=== PATIENT | female | born 1965 | race Caucasian/White ===

== ENCOUNTER 2024-04-23 11:24 | Emergency (ER) | payer OTHER, SELFPAY ==
[2024-04-23 11:27] VITALS: BP 144/96
[2024-04-23 12:16] VITALS: BP 144/89; BMI 22.6
--- NOTE | 2024-04-23 12:29 | ED.GENMED ---
History of Present Illness
General
Chief Complaint: Cardiac Symptoms
Time Seen by Provider: 04/23/24 12:01
History of Present Illness
History of Present Illness:
58-year-old female with history of hypertension presents to the emergency department for evaluation of heart palpitations and intermittent chest pain beginning last night. No obvious provoking or palliating factors. Reports feeling several
episodes of 'skipped beats' throughout the duration of the symptoms. Denies shortness of breath or pleuritic chest pain. Denies any leg swelling or calf pain. Has family history of coronary disease but no personal history. Non-smoker
Past History
Past History
ED Past Medical History: Asthma, Fibromyalgia, HTN, Hypothyroidism and Other (Lyme disease)
ED Past Surgical History: Appendectomy and Cholecystectomy
Social History
Tobacco: Non-smoker
Alcohol: None
Employment: Employed
Review of Systems
Review of Systems
Allergies reviewed?: Yes
All Other Systems: ROS reviewed and negative except as documented in HPI and ROS
Phy Exam
Physical Exam
Physical Exam:
GEN: Well appearing, NAD, WDWN
HEENT: Oral mucosa moist, no scleral icterus
Cardiac: Regular rate and rhythm, no murmurs or rubs
Lung: No respiratory distress, no tachypnea, lungs clear to auscultation bilaterally
MSK: No gross deformity or injuries
Skin: Good color, no pallor or jaundice, no rashes
Neuro: AO x3, moves all extremities freely
Psych: Calm, cooperative
Course
Orders/Labs/Results
Orders:
Orders
04/23/24 11:25
ECG [Electrocardiogram (*1)] Urgent
Reason for Study: Chest Pain
EKG- Treatment ONCE
04/23/24 12:29
Complete Blood Count/With Diff Urgent
Comprehensive Metabolic Panel Urgent
DDimer [D-Dimer] Urgent
TSH Reflex To Free T4 Urgent
Troponin I Urgent
Abnormal Lab Results
04/23/24
12:29
MCH 32.6 H pg
(27.0-31.0)
Glucose 111 H mg/dl
(70-99)
AST 38 H U/L
(14-36)
ALT 46 H U/L
(0-35)
04/23/24 12:29
04/23/24 12:29
Vital Signs
Initial and Last Documented VS:
Initial Vital Signs
Pulse Resp BP Pulse Ox
116 16 144/96 99
04/23/24 11:27 04/23/24 11:27 04/23/24 11:27 04/23/24 11:27
Last Documented Vital Signs
Pulse Resp BP Pulse Ox
82 18 117/67 98
04/23/24 13:15 04/23/24 13:15 04/23/24 13:00 04/23/24 13:15
MDM/Problems Addressed
MDM/Problems Addressed:
Patient's workup is reassuring, D-dimer negative rules out pulmonary embolism. Although there is no evidence of acute coronary syndrome at this time, she does have family risk coupled with hypotension thus will refer to cardiology for outpatient
follow-up
Comment
Comment:
EKG independently interpreted by me shows a normal sinus rhythm at a rate of 95, some patient motion artifact in the lateral leads limits interpretation but no gross changes concerning for ischemia
*Critical Care Note
Total Time (30-74mins, 75-104mins- exclusive of procedures): Not Applicable
ED Attending Note
-
Portions of this chart may have been created with voice recognition software.� Occasional wrong word or��sound alike� substitutions may have occurred due to the inherent limitations of voice recognition software.
Discharge Plan
Departure
Patient Disposition: Home (Routine Discharge)
Date of Disposition: 04/23/24
Time of Disposition: 13:08
Patient with high blood pressure during this ER visit?: No
Discharge Problem:
Chest pain
Instructions: Chest Pain DCA Follow Up
Prescriptions:
No Action
sucralfate 1 GRAM tablet
1 g PO BIDPRN PRN (Reason: GI upset, acid reflux)
morphine 30 MG tablet extended release
30 mg PO DAILY
levothyroxine 50 MCG tablet
50 mcg PO DAILY
albuterol sulfate 1 PUFF HFA aerosol inhaler
1 puff inhalation R Q4HPRN PRN (Reason: sob)
pregabalin 50 MG capsule
50 mg PO DAILY
cholecalciferol (vitamin D3) 1,000 UNITS tablet
1,000 units PO DAILY
alpha lipoic acid 200 MG capsule
200 mg PO DAILY
multivitamin with folic acid [Tab-A-Michelle] 1 TABLET tablet
1 tab PO DAILY
codeine sulfate 15 MG tablet
120 mg PO BIDPRN PRN (Reason: breakthrough pain)
ibuprofen [Advil] 200 MG tablet
400 mg PO TIDPRN PRN (Reason: mildpain)
pregabalin 50 MG capsule
50 mg PO HSPRN PRN (Reason: severe pain)
Patient Comments:
at night if needed
Curcumin
1 cap PO DAILY
famotidine 20 MG tablet
20 mg PO DAILY
Cbd Ointment Otc
PRN (Reason: muscle pain)
Referrals:
Briana Mitchell DO [Family Provider] -
Interventions
Interventions:
*Risk Screen - Suicide Last Done: 04/23/24 12:16
*General Assessment Last Done: 04/23/24 12:16
*Neglect/Abuse Screening Last Done: 04/23/24 12:16
ED- Fall Risk Assessment Last Done: 04/23/24 12:16
*ED COVID-19 Vaccine History Last Done: 04/23/24 12:16
*Nursing Disposition Last Done: 04/23/24 13:41
ED- Pulmonary Assessment Last Done: 04/23/24 12:16
ED- Cardiac Assessment Last Done: 04/23/24 12:16
Discharge Date and Time
Discharge Date/Time: 04/23/24 13:42
Print Language: TOGOLESE
[2024-04-23 12:41] LABS: % Basophils 0.5 % (0-2); % Eosinophils 0.4 % (0-6); % Immature Granulocytes 0.4 % (0-0.5); % Lymphocytes 39.9 % (20.5-51.1); % Monocytes 6.9 % (1.7-9.3); % Neutrophils 51.9 % (42.2-75.2); Absolute Lymphocytes 2.3 10^3/uL (1.2-3.4); Absolute Monocytes 0.4 10^3/uL (0.1-0.6); Hemoglobin 14.3 g/dL (12.0-16.0); Mean Corpuscular Hgb 32.6 pg (27.0-31.0); Mean Corpuscular Volume 95.7 fL (81.0-99.0); Mean Platelet Volume 10.2 fL (7.4-10.4); Nucleated Red Blood Cells % 0 %; Platelet Count 257 10^3/uL (130-400); Red Blood Cell Count 4.39 10^6/uL (4.20-5.40); Red Cell Dist. Width 14.3 % (11.5-14.5); White Blood Cell Count 5.7 10^3/uL (4.8-10.8)
[2024-04-23 12:52] LABS: D-Dimer 0.48 ug/mlFEU (0.00-0.50)
[2024-04-23 12:55] LABS: ALT (SGPT) 46 U/L (0-35); AST (SGOT) 38 U/L (14-36); Albumin 4.9 g/dl (3.5-5.0); Alkaline Phosphatase 81 U/L (38-126); Blood Urea Nitrogen 13 mg/dl (7-17); Calcium 9.9 mg/dl (8.4-10.2); Carbon Dioxide 29 mmol/L (22-30); Chloride 100 mmol/L (98-107); Estimated Creatinine Clearance 77 ml/min; Glucose 111 mg/dl (70-99); Potassium 4.6 mmol/L (3.5-5.1); Sodium 139 mmol/L (135-145); Total Bilirubin 0.7 mg/dl (0.2-1.3); Total Protein 7.6 g/dl (6.3-8.2); eGFR > 60.00
[2024-04-23 13:00] VITALS: BP 117/67
[2024-04-23 13:06] LABS: Troponin I < 0.012 ng/ml
== END 2024-04-23 13:42 | disposition home or self-care (01) ==
LOC: EMR 11:24
PROVIDERS: Physician Assistant; EMERGENCY PHYSICIAN Emergency Medicine; FAMILY PHYSICIAN Family Medicine
DX: R07.89 Other chest pain (principal); I10 Essential (primary) hypertension
CPT/HCPCS: 99284; 80053; 84443; 84484; 85025; 85379; 93005

== ENCOUNTER 2024-05-28 16:14 | Emergency (ER) | payer OTHER, SELFPAY ==
[2024-05-28 16:17] VITALS: BP 132/91
[2024-05-28 16:55] VITALS: BMI 23.5
--- NOTE | 2024-05-28 17:24 | ED.GENMED ---
History of Present Illness
General
Chief Complaint: Abdominal Pain
Source: patient
Exam Limitations: none
Time Seen by Provider: 05/28/24 17:16
Nursing documentation reviewed up to this point in time: agreed with
History of Present Illness
History of Present Illness:
Patient presents to ED secondary to worsening pain, as well as discoloration of her existing umbilical hernia over the past 2 days. Patient states that she had seen general surgeon in the past, and surgery was recommended 2 years ago. Denies fever
or chills. Denies trauma. Patient does report intermittent episodes of vomiting since onset of symptoms. Patient notices swelling when she is standing up, but improves when laying down. Denies change in bowel habits. Denies recent change in
medications or diet.
Past History
Past History
ED Past Medical History: Asthma, Fibromyalgia, HTN, Hypothyroidism and Other (Lyme disease)
ED Past Surgical History: Appendectomy and Cholecystectomy
Social History
Tobacco: Non-smoker
Alcohol: None
Employment: Employed
Review of Systems
Review of Systems
Allergies reviewed?: Yes
All Other Systems: ROS reviewed and negative except as documented in HPI and ROS
Constitutional: Reports no symptoms
ABD/GI: Reports abdominal pain, vomiting and other (Umbilical hernia)
: Reports no symptoms
Musculoskeletal: Reports no symptoms
Skin: Reports no symptoms
Neurological: Reports no symptoms
Phy Exam
Physical Exam
Physical Exam:
Physical Exam
General: no apparent distress, not acutely ill. afebrile.
Head: nc/at. eomi
Neck: supple. normal range of motion.
Abdomen: normal bowel sounds. umbilical hernia noted, easily reducible. no distention.
Neuro: alert and oriented. no focal neurological deficits
Skin: no rash
Psychiatric: well kept. interactive and cooperative
Extremities: no edema. no calf tenderness.
Course
Vital Signs
Initial and Last Documented VS:
Initial Vital Signs
Temp Pulse Resp BP Pulse Ox
98.1 F 115 20 132/91 100
05/28/24 16:17 05/28/24 16:17 05/28/24 16:17 05/28/24 16:17 05/28/24 16:17
Last Documented Vital Signs
Temp Pulse Resp BP Pulse Ox
98.1 F 115 20 132/91 100
05/28/24 16:17 05/28/24 16:17 05/28/24 16:17 05/28/24 16:17 05/28/24 16:17
MDM/Problems Addressed
MDM/Problems Addressed:
History exam consistent with existing umbilical hernia, easily reducible. Patient does not have any exam findings concerning for incarcerated hernia. Patient will be referred to surgery for an outpatient consultation. Patient advised to return to
ED worsening symptoms, i.e. nonreducible hernia/persistent discoloration/vomiting. Patient expresses understanding at time of discharge.
*Critical Care Note
Total Time (30-74mins, 75-104mins- exclusive of procedures): Not Applicable
ED Attending Note
-
Portions of this chart may have been created with voice recognition software.� Occasional wrong word or��sound alike� substitutions may have occurred due to the inherent limitations of voice recognition software.
Discharge Plan
Departure
Patient Disposition: Home (Routine Discharge)
Date of Disposition: 05/28/24
Time of Disposition: 17:24
Patient with high blood pressure during this ER visit?: Yes
Condition: Good
Discharge Problem:
Hernia, umbilical
Instructions: Abdominal wall hernias
Prescriptions:
No Action
sucralfate 1 GRAM tablet
1 g PO BIDPRN PRN (Reason: GI upset, acid reflux)
morphine 30 MG tablet extended release
30 mg PO DAILY
levothyroxine 50 MCG tablet
50 mcg PO DAILY
albuterol sulfate 1 PUFF HFA aerosol inhaler
1 puff inhalation R Q4HPRN PRN (Reason: sob)
pregabalin 50 MG capsule
50 mg PO DAILY
cholecalciferol (vitamin D3) 1,000 UNITS tablet
1,000 units PO DAILY
alpha lipoic acid 200 MG capsule
200 mg PO DAILY
multivitamin with folic acid [Tab-A-Michelle] 1 TABLET tablet
1 tab PO DAILY
codeine sulfate 15 MG tablet
120 mg PO BIDPRN PRN (Reason: breakthrough pain)
ibuprofen [Advil] 200 MG tablet
400 mg PO TIDPRN PRN (Reason: mildpain)
pregabalin 50 MG capsule
50 mg PO HSPRN PRN (Reason: severe pain)
Patient Comments:
at night if needed
Curcumin
1 cap PO DAILY
famotidine 20 MG tablet
20 mg PO DAILY
Cbd Ointment Otc
PRN (Reason: muscle pain)
Referrals:
Mike Valencia MD [Active] -
Briana Mitchell DO [Family Provider] -
Activity Restrictions/Additional Instructions:
As discussed, please follow-up with referred general surgeon for further evaluation and treatment. Please return to ED with worsening symptoms, i.e. fever/worsening pain/persistent discoloration of the skin/none reducible hernia
Interventions
Interventions:
*Risk Screen - Suicide Last Done: 05/28/24 16:17
*General Assessment Last Done: 05/28/24 16:17
*Neglect/Abuse Screening Last Done: 05/28/24 16:17
*Nursing Disposition Last Done: 05/28/24 17:46
[facility] Assessment Last Done: 05/28/24 16:57
Discharge Date and Time
Discharge Date/Time: 05/28/24 17:46
Print Language: SOMALI
== END 2024-05-28 17:46 | disposition home or self-care (01) ==
LOC: EMR 16:14
PROVIDERS: EMERGENCY PHYSICIAN Emergency Medicine; FAMILY PHYSICIAN Family Medicine
DX: K42.9 Umbilical hernia without obstruction or gangrene (principal); J45.909 Unspecified asthma, uncomplicated; M79.7 Fibromyalgia; I10 Essential (primary) hypertension; E03.9 Hypothyroidism, unspecified; Z90.49 Acquired absence of other specified parts of digestive tract
CPT/HCPCS: 99282